=== PATIENT | male | born 1965 | race Hispanic/Latino ===

== ENCOUNTER 2018-11-13 10:33 | Day surgery (SDC) | payer BC, OTHER ==
[2018-11-13] MEDS ORDERED: ZOFRAN IV PRN (11:17)
--- NOTE | 2018-11-13 11:18 | Anesthesia Day of Surgery ---
Anesthesia Day of Surgery - Day of Surgery Patient Examined: Yes Patient H&P Reviewed: Yes Patient is NPO: Yes
[2018-11-13] MEDS ORDERED: MORPHINE IV ONE (11:22)
--- NOTE | 2018-11-13 11:22 | Anesthesia Consultation ---
Anesthesia Consult and Med Hx Date of service: 11/13/18 - Airway Anesthetic Teeth Evaluation: Good, Crowns ROM Head & Neck: Adequate (S/P ACDF) Mental/Hyoid Distance: Adequate Mallampati Class: Class II Intubation Access Assessment: Good - Pre-Operative Health Status ASA Pre-Surgery Classification: ASA2 Proposed Anesthetic Plan: General - Pulmonary Hx Smoking: No Hx Sleep Apnea: No (SHAE PRE SCREEN HIGH RISK) - Cardiovascular System Hx Hypertension: No - Central Nervous System Hx Psychiatric Problems: Yes (DR. PATEL(PCP), depression) - Endocrine Hx Renal Disease: Yes (kidney stones) - Other Systems Hx Alcohol Use: No (RARELY) Hx Substance Use: No Hx Cancer: No
[2018-11-13] MEDS ORDERED: VERSED IV NR (12:00)
[2018-11-13] MEDS ORDERED: LACTATED RINGERS 1,000 ML IV SCH (12:00)
[2018-11-13] MEDS ORDERED: DILAUDID ONE (13:59)
[2018-11-13] MEDS ORDERED: DIPRIVAN 10 MG/ML IV ONE (14:00)
[2018-11-13] MEDS ORDERED: XYLOCAINE MPF 2% ONE (14:01)
[2018-11-13] MEDS ORDERED: ZOFRAN ONE (14:44)
--- NOTE | 2018-11-13 15:01 | Short Stay Summary ---
Short Stay Documentation Date of service: 11/13/18 - History H&P: obtained from office - Allergies and Medications Current Medications: Allergies No Known Allergies Allergy (Verified 06/19/17 14:06) Home Medications Medication Instructions Recorded Confirmed Last Taken Type Cannabidiol (Cbd) Extract 100 mg PO DAILY 11/12/18 11/12/18 Unknown History [Epidiolex] traMADol [Ultram] 50 mg PO Q4HR PRN 11/12/18 11/12/18 Unknown History Active Medications Fentanyl (Sublimaze) 50 mcg IV Q5MIN PRN PRN Reason: Pain , Severe (7-10) Stop: 11/13/18 23:59 Lactated Ringer's (Lactated Ringers) 1,000 mls @ 125 mls/hr IV DIRECT ROSA Midazolam HCl (Versed) 2 mg IV PREOP NR Stop: 11/13/18 23:59 Ondansetron HCl (Zofran) 4 mg IV ONCE PRN PRN Reason: Nausea And Vomiting Stop: 11/13/18 23:59 - Brief post op/procedure progress note Date of procedure: 11/13/18 Pre-op diagnosis: balat renal stone 6mm Post-op diagnosis: same Procedure: left eswl Anesthesia: GETA Surgeon: JOSE RASCON Estimated blood loss: none Condition: stable - Hospital course Hospital course: percocet,maryer, post op info on chart - Disposition Condition at discharge: Stable Disposition: DC-01 TO HOME OR SELFCARE Short Stay Discharge Plan Follow up with: CARYN PATEL MD [Primary Care Provider] - 7 Days
[2018-11-13] MEDS: SUBLIMAZE IV PRN ×2 (15:12→15:25)
--- NOTE | 2018-11-13 15:17 | Operative Report ---
PREOPERATIVE DIAGNOSIS: Bilateral renal stones. POSTOPERATIVE DIAGNOSIS: Bilateral renal stones. PROCEDURE: Left extracorporal shock wave lithotripsy (staged) SURGEON: Hermelindo Falk MD ANESTHESIA: General. ESTIMATED BLOOD LOSS: Minimal. FLUIDS: Crystalloid. COMPLICATIONS: No complications. INDICATIONS: This patient is a 53-year-old gentleman seen by Dr. Ellsworth in the office, found to have bilateral stones. He has been noncompliant over the last several years. He states he has had lithotripsies in the past. Dr. Ellsworth was on vacation. He called emergently and I saw him in the office explained to him that due to the size of the stones, it is unlikely he is going to pass them and I would recommend lithotripsy. He discussed with his . He agrees to proceed with surgical intervention. DESCRIPTION OF PROCEDURE: The patient was taken to the operative suite, placed in a supine position. After adequate general anesthesia, his left 6 mm stone was localized with 2 planes using fluoroscopy. Extracorporal shock wave lithotripsy was administered with maximum kV of 7 and 2500 shocks. A 5-minute renal pause after 200 shocks. Adequate fragmentation could be appreciated. He tolerated the procedure well. He was extubated and taken to recovery room. He will go home on Percocet, a strainer and follow up in the office. JOB# [id number] KAREN/WILFRED SANDOVAL
[2018-11-13] MEDS ORDERED: PERCOCET 5/325 PO ONE (15:41)
[2018-11-13 16:31] VITALS: BP 132/74
--- NOTE | 2018-11-13 17:23 | Post Anesthesia Evaluation ---
- Post Anesthesia Evaluation Patient Participated: Yes Airway Patent: Yes Stable Respiratory Function: Yes Nausea/Vomiting: No Temp > 96.8F: Yes Pain Manageable: Yes Adequeate Hydration: Yes Anesthesia Complications: No
== END 2018-11-13 10:34 | disposition home or self-care (01) ==
LOC: OR 10:33
PROVIDERS: ATTEND Urology
DX: N20.0 Calculus of kidney (principal); G43.909 Migraine, unspecified, not intractable, without status migrainosus; F32.9 Major depressive disorder, single episode, unspecified; F41.9 Anxiety disorder, unspecified; Z98.890 Other specified postprocedural states; Z79.899 Other long term (current) drug therapy
CPT/HCPCS: 50590; J1170; J2250; J2405; J2704; J3010; J7120

== ENCOUNTER 2018-11-27 08:52 | Day surgery (SDC) | payer BC ==
[~2018-11-27 08:52] MED LIST: ANCEF/STERILE WATER 2 GM/20 ML 2 GM/20 ML SYRINGE IV NR; LACTATED RINGERS 1,000 ML IV SCH; VERSED IV SCH
[2018-11-27] MEDS ORDERED: SUBLIMAZE IV SCH (09:31)
[2018-11-27] MEDS ORDERED: DIPRIVAN 10 MG/ML IV ONE (09:36)
[2018-11-27] MEDS ORDERED: ZOFRAN IV PRN (09:40)
--- NOTE | 2018-11-27 09:40 | Anesthesia Consultation ---
Anesthesia Consult and Med Hx Date of service: 11/27/18 - Airway Anesthetic Teeth Evaluation: Good ROM Head & Neck: Adequate Mental/Hyoid Distance: Adequate Mallampati Class: Class II Intubation Access Assessment: Good - Pulmonary Exam CTA: Yes - Cardiac Exam Cardiac Exam: RRR - Pre-Operative Health Status ASA Pre-Surgery Classification: ASA2 (migraines, anxiety ) Proposed Anesthetic Plan: General - Central Nervous System Hx Psychiatric Problems: Yes - Other Systems Hx Alcohol Use: Yes (RARELY) Hx Cancer: No
--- NOTE | 2018-11-27 09:40 | Anesthesia Day of Surgery ---
Anesthesia Day of Surgery - Day of Surgery Patient Examined: Yes Patient H&P Reviewed: Yes Patient is NPO: Yes
[2018-11-27] MEDS ORDERED: WATER FOR IRRIG STERILE IR ONE (10:06)
[2018-11-27] MEDS ORDERED: DECADRON ONE (11:00)
[2018-11-27] MEDS ORDERED: ZOFRAN ONE (11:00)
[2018-11-27] MEDS ORDERED: XYLOCAINE MPF 2% ONE (11:00)
--- NOTE | 2018-11-27 11:25 | Post Operative Note ---
Date of procedure: 11/27/18 Pre-op diagnosis: stones ... Post-op diagnosis: same Findings: large distal stone Procedure: large distal stone renal stones Anesthesia: GETA Surgeon: KAMERON RUST Estimated blood loss: none Pathology: none Condition: stable Disposition: PACU
--- NOTE | 2018-11-27 11:26 | Discharge Summary ---
Short Stay Discharge Plan Activity: other (no straining ) Weight Bearing Status: Full Weight Bearing Diet: low fat, low cholesterol, low salt Special Instructions: other (inc fluids ) Follow up with: CARYN PATEL MD [Primary Care Provider] - 7 Days KAMERON RUST MD [Staff Physician] - 7 Days
[2018-11-27] MEDS: DILAUDID IV PRN ×2 (11:28→12:21)
--- NOTE | 2018-11-27 11:38 | Operative Report ---
PREOPERATIVE DIAGNOSES: Severe right flank pain, renal stones, possible ureteral stones, hydronephrosis. POSTOPERATIVE DIAGNOSES: Severe right flank pain, renal stones, possible ureteral stones, hydronephrosis with an 8 mm distal ureteral stone at the ureterovesical junction. PROCEDURE: Cystoscopy, right retrograde, right ureteroscopy, balloon dilatation, lasered the stone with stone extraction. SURGEON: Cruz Ellington MD ANESTHESIA: General. FINDINGS: This is a gentleman who initially had renal stones. He has an obstructing stone with severe pain. He now presents for treatment. DESCRIPTION OF PROCEDURE: The patient was brought to lithotripsy and placed on the table. There were some stones in the kidney, nothing really large. We followed this down. We saw what looked to be a large stone at the UVJ. He was then placed in lithotomy position. Retrograde showed the stone to be obstructing at the UVJ with hydroureteronephrosis. We therefore did not do a lithotripsy. We placed a wire and ureteroscopic balloon dilatation was carried out. A large stone was seen and this had to be lasered because it was too big to extract. It was lasered into three pieces and they were all extracted. The patient tolerated the procedure well. Family notified placed a double-J stent, let the kidney decompress. We did not do lithotripsy at this point. He may need followup lithotripsy, but at this point we had to relieve this obstruction. The patient tolerated the procedure well. Family notified, brought to recovery in stable condition. JOB# [id number] LEONARDO/WILFRED
[2018-11-27 12:11] VITALS: BP 126/83
--- NOTE | 2018-11-27 13:42 | Post Anesthesia Evaluation ---
- Post Anesthesia Evaluation Patient Participated: Yes Airway Patent: Yes Stable Respiratory Function: Yes Nausea/Vomiting: No Temp > 96.8F: Yes Pain Manageable: Yes Adequeate Hydration: Yes Anesthesia Complications: No Block Receding Appropriately: Not Applicable Patient on Ventilator: No
== END 2018-11-27 08:53 | disposition home or self-care (01) ==
LOC: OR 08:52
PROVIDERS: ATTEND Urology
DX: N13.2 Hydronephrosis with renal and ureteral calculous obstruction (principal); G43.909 Migraine, unspecified, not intractable, without status migrainosus; F32.9 Major depressive disorder, single episode, unspecified; F41.9 Anxiety disorder, unspecified; Z72.89 Other problems related to lifestyle; Z98.890 Other specified postprocedural states; Z79.899 Other long term (current) drug therapy
CPT/HCPCS: 52353; A4217; C1726; C1758; C1769; C2617; J0690; J1100; J1170; J2250; J2405; J2704; J3010; J7120; Q9967

== ENCOUNTER 2019-03-05 06:48 | Day surgery (SDC) | payer BC ==
[2019-03-05] MEDS ORDERED: LACTATED RINGERS 1,000 ML IV SCH (07:00)
[2019-03-05] MEDS ORDERED: BACTERIOSTATIC SODIUM CHLORIDE 0.9% 30 ML VIAL INFILTRATI ONE (07:17)
[2019-03-05] MEDS ORDERED: ceFAZolin/STERILE WATER 2 GM/20 ML SYRINGE IV NR (08:00)
--- NOTE | 2019-03-05 08:15 | Anesthesia Consultation ---
Anesthesia Consult and Med Hx Date of service: 03/05/19 - Airway Anesthetic Teeth Evaluation: Good ROM Head & Neck: Adequate Mental/Hyoid Distance: Adequate Mallampati Class: Class II Intubation Access Assessment: Good - Pulmonary Exam CTA: Yes - Cardiac Exam Cardiac Exam: RRR - Pre-Operative Health Status ASA Pre-Surgery Classification: ASA2 Proposed Anesthetic Plan: General (migraines, elevated BMI for GA) - Pulmonary Hx Smoking: No Hx Sleep Apnea: No (SHAE PRE SCREEN HIGH RISK) - Cardiovascular System Hx Hypertension: No Hx Heart Attack/AMI: No - Central Nervous System Hx Psychiatric Problems: No - Hematic Hx Anemia: No - Other Systems Hx Alcohol Use: Yes (RARE- WINE) Hx Substance Use: No Hx Cancer: No
--- NOTE | 2019-03-05 08:15 | Anesthesia Day of Surgery ---
Anesthesia Day of Surgery - Day of Surgery Patient Examined: Yes Patient H&P Reviewed: Yes Patient is NPO: Yes
[2019-03-05] MEDS ORDERED: ONDANSETRON 4 MG/2 ML INJ IV PRN (08:16)
[2019-03-05] MEDS ORDERED: HYDROmorphone 1 MG/1 ML INJ IV PRN (08:16)
[2019-03-05] MEDS ORDERED: LIDOCAINE MPF (2%) 20 MG/1 ML VIAL 5 ML ONE (08:21)
[2019-03-05] MEDS ORDERED: dexAMETHasone 20 MG/5 ML VIAL ONE (08:21)
[2019-03-05] MEDS ORDERED: SUCCINYLCHOLINE CHLORIDE 200 MG/10 ML INJ MDV ONE (08:22)
[2019-03-05] MEDS ORDERED: fentaNYL 100 MCG/2 ML INJ ONE (08:22)
[2019-03-05] MEDS ORDERED: PHENYLEPHRINE/NS 1,000 MCG/10 ML SYRINGE (OR USE) IV ONE (08:22)
[2019-03-05] MEDS ORDERED: PROPOFOL 200 MG/20 ML VIAL IV ONE (08:22)
[2019-03-05] MEDS ORDERED: GLYCOPYRROLATE 0.4 MG/2 ML INJ ONE (08:22)
[2019-03-05] MEDS ORDERED: MIDAZOLAM 2 MG/2 ML INJ IV NR (09:00)
--- NOTE | 2019-03-05 09:35 | Short Stay Summary ---
Short Stay Documentation Date of service: 03/05/19 - History H&P: obtained from office - Allergies and Medications Current Medications: Allergies No Known Allergies Allergy (Verified 11/25/18 18:19) Home Medications Medication Instructions Recorded Confirmed Last Taken Type Cannabidiol (Cbd) Extract 100 mg PO DAILY 11/12/18 03/03/19 03/05/19 06:00 History [Epidiolex] Oxycodone HCl/Acetaminophen 1 each PO Q6HR PRN 11/25/18 03/05/19 02/02/19 History [Percocet 10/325 mg] Centrum Men's Tablet 1 tab PO DAILY 02/26/19 02/26/19 03/05/19 06:00 History Hydrochlorothiazide 12.5 mg PO DAILY 02/26/19 02/26/19 03/05/19 06:00 History Sod/Pot/K Cit/Sod Cit/Cit Acid 1,620 mg PO QDAY 03/05/19 03/05/19 03/05/19 06:00 History [Potass Cit-Sod Cit-Citric Soln] Active Medications Cefazolin Sodium (Ancef/Sterile Water 2 Gm/20 Ml) 2 gm IV PREOP NR Stop: 03/05/19 13:00 Hydromorphone HCl (Dilaudid) 0.5 mg IV Q10MIN PRN PRN Reason: Pain , Severe (7-10) Stop: 03/05/19 22:00 Lactated Ringer's (Lactated Ringers) 1,000 mls @ 100 mls/hr IV DIRECT ROSA Last Admin: 03/05/19 07:17 Dose: 100 mls/hr Documented by: Midazolam HCl (Versed) 2 mg IV PREOP NR Stop: 03/05/19 23:59 Last Admin: 03/05/19 08:21 Dose: 2 mg Documented by: Ondansetron HCl (Zofran) 4 mg IV ONCE PRN PRN Reason: Nausea And Vomiting Stop: 03/05/19 14:00 - Brief post op/procedure progress note Date of procedure: 03/05/19 Pre-op diagnosis: left renal stone Post-op diagnosis: same Procedure: left ESWL Anesthesia: GETA Surgeon: JOSE RASCON Condition: stable - Hospital course Hospital course: ultram, percocet, post op info on chart - Disposition Condition at discharge: Stable Disposition: DC-01 TO HOME OR SELFCARE Short Stay Discharge Plan Follow up with: CARYN PATEL MD [Primary Care Provider] - 7 Days
[2019-03-05] MEDS ORDERED: MEPERIDINE 25 MG/1 ML INJ IV PRN (09:54)
[2019-03-05] MEDS ORDERED: oxyCODONE /ACETAMINOPHEN 5-325MG TAB PO PRN (09:54)
--- NOTE | 2019-03-05 09:58 | Operative Report ---
PREOPERATIVE DIAGNOSIS: Left renal stone. POSTOPERATIVE DIAGNOSES: Left renal stone. PROCEDURE: Left extracorporal shock wave lithotripsy, staged procedure. SURGEON: Hermelindo Falk MD ANESTHESIA: General. ESTIMATED BLOOD LOSS: Minimal. FLUIDS: Crystalloid. COMPLICATIONS: No complications. INDICATIONS: This patient is a 53-year-old gentleman with a long history of kidney stones. I did his lithotripsy several months ago. He has bilateral stones and understands this may require multiple procedures. He has a 9 mm left renal stone. He is now on Urocit-K due to his 24-hour urine evaluation. Risks, benefits, and complications were explained to the patient and his . They agreed to proceed with surgical intervention. DESCRIPTION OF PROCEDURE: The patient was taken to the operative suite, placed in a supine position. After adequate general anesthesia, his left renal stone was localized in 2 planes using fluoroscopy. Extracorporal shock wave lithotripsy was administered in maximum kV of 8 and 2500 shocks, 5-minute renal pause after 200 shocks was performed. Adequate fragmentation could be appreciated. He tolerated the procedure well and was extubated and taken to recovery room. He will go home on Percocet and Ultram and follow up in the office. JOB# [id number] KAREN/WILFRED
[2019-03-05 11:00] VITALS: BP 128/83
== END 2019-03-05 06:49 | disposition home or self-care (01) ==
LOC: OR 06:48
PROVIDERS: ATTEND Urology
DX: N20.0 Calculus of kidney (principal); G43.909 Migraine, unspecified, not intractable, without status migrainosus; K21.9 Gastro-esophageal reflux disease without esophagitis; F32.9 Major depressive disorder, single episode, unspecified; F41.9 Anxiety disorder, unspecified; Z72.89 Other problems related to lifestyle; Z79.899 Other long term (current) drug therapy; Z98.890 Other specified postprocedural states
CPT/HCPCS: 36415; 50590; 84132; J0330; J0690; J1100; J2175; J2250; J2370; J2405; J2704; J3010; J7120

== ENCOUNTER 2020-11-10 05:55 | Day surgery (SDC) | payer BC, OTHER ==
[2020-11-10] MEDS ORDERED: LACTATED RINGERS 1,000 ML ONE (06:20)
[2020-11-10] MEDS ORDERED: BACTERIOSTATIC SODIUM CHLORIDE 0.9% 30 ML VIAL INFILTRATI ONE (06:21)
[2020-11-10] MEDS ORDERED: LACTATED RINGERS 1,000 ML IV SCH (06:45)
--- NOTE | 2020-11-10 06:50 | Anesthesia Consultation ---
Anesthesia Consult and Med Hx Date of service: 11/10/20 - Airway Anesthetic Teeth Evaluation: Good ROM Head & Neck: Adequate Mental/Hyoid Distance: Adequate Mallampati Class: Class II Intubation Access Assessment: Good - Pulmonary Exam CTA: Yes - Cardiac Exam Cardiac Exam: RRR - Pre-Operative Health Status ASA Pre-Surgery Classification: ASA2 Proposed Anesthetic Plan: General - Pulmonary Hx Smoking: No Hx Sleep Apnea: No (SHAE PRE SCREEN HIGH RISK) - Cardiovascular System Hx Hypertension: Yes Hx Heart Attack/AMI: No - Central Nervous System Hx Psychiatric Problems: No - Hematic Hx Anemia: No - Other Systems Hx Substance Use: No Hx Cancer: No
--- NOTE | 2020-11-10 06:50 | Anesthesia Day of Surgery ---
Anesthesia Day of Surgery - Day of Surgery Patient Examined: Yes Patient H&P Reviewed: Yes Patient is NPO: Yes
[2020-11-10] MEDS ORDERED: HYDROmorphone 1 MG/1 ML INJ IV NR (06:51)
[2020-11-10] MEDS ORDERED: MIDAZOLAM 2 MG/2 ML INJ IV NR (07:00)
[2020-11-10] MEDS ORDERED: ONDANSETRON 4 MG/2 ML INJ ONE ×2 (07:03→07:06)
[2020-11-10] MEDS ORDERED: ONDANSETRON 4 MG/2 ML INJ IV NR (07:05)
[2020-11-10] MEDS ORDERED: propofoL 200 MG/20 ML VIAL IV ONE (07:06)
[2020-11-10] MEDS ORDERED: dexAMETHasone 20 MG/5 ML VIAL ONE (07:06)
[2020-11-10] MEDS ORDERED: LIDOCAINE MPF (2%) 20 MG/1 ML VIAL 5 ML ONE (07:06)
[2020-11-10] MEDS ORDERED: fentaNYL 100 MCG/2 ML INJ ONE (07:06)
[2020-11-10] MEDS ORDERED: ePHEDrine SULFATE 50 MG/1 ML INJ ONE (07:14)
[2020-11-10] MEDS ORDERED: ONDANSETRON 4 MG/2 ML INJ IV PRN (07:16)
[2020-11-10] MEDS ORDERED: HYDROmorphone 1 MG/1 ML INJ IV PRN ×2 (07:16)
[2020-11-10] MEDS ORDERED: ceFAZolin/STERILE WATER 2 GM/20 ML SYRINGE IV NR (07:37)
[2020-11-10] MEDS ORDERED: ceFAZolin/Water 2 GM/20 ML 2 GM/20 ML SYRINGE IV ONE (07:40)
[2020-11-10] MEDS ORDERED: PHENYLEPHRINE/NS 1,000 MCG/10 ML SYRINGE (OR USE) IV ONE (08:42)
--- NOTE | 2020-11-10 08:51 | Post Operative Note ---
Date of procedure: 11/10/20 Pre-op diagnosis: `bilat stones Post-op diagnosis: same Procedure: r eswl Anesthesia: GETA Surgeon: KAMERON RUST Estimated blood loss: none Pathology: none Condition: stable Disposition: PACU
--- NOTE | 2020-11-10 09:03 | Operative Report ---
DATE OF SURGERY: 11/10/2020 PREOPERATIVE DIAGNOSES: Bilateral renal and previous ureteral stone. POSTOPERATIVE DIAGNOSES: Bilateral renal and previous ureteral stone. PROCEDURE PERFORMED: Right in situ lithotripsy. SURGEON: Cruz Ellington M.D. ANESTHESIA: General. FINDINGS: This is a gentleman with a large stone burden bilaterally. He has had multiple stones and passed multiple stones. No hydronephrosis. He now presents for treatment. DESCRIPTION OF PROCEDURE: The patient was brought to lithotripsy and placed on the table. Stones were easily localized. There were clusters of stones almost in a crescent shape. Shocks were begun at 1 kV, increased to a maximum of 7 kV. We mostly stayed at 80 shocks per minute. The patient tolerated the procedure well. There was clearly some change in the density on the visualization and opacity of the stones. PLAN: We will follow up in one to two weeks. Call if there is any pain. Tolerated the procedure well and brought to recovery in stable condition. TID: [id number] RECEIPT: [id number] LEONARDO/JASIEL
[2020-11-10 10:30] VITALS: BP 123/84
[2020-11-10] MEDS ORDERED: HYDROcodone/ACETAMINOPHEN 5-325 MG TAB PO PRN (11:30)
== END 2020-11-10 05:56 | disposition home or self-care (01) ==
LOC: OR 05:55
PROVIDERS: ATTEND Urology
DX: N20.2 Calculus of kidney with calculus of ureter (principal); Z79.899 Other long term (current) drug therapy; G43.909 Migraine, unspecified, not intractable, without status migrainosus; K21.9 Gastro-esophageal reflux disease without esophagitis; F32.9 Major depressive disorder, single episode, unspecified; F41.9 Anxiety disorder, unspecified; Z98.890 Other specified postprocedural states
CPT/HCPCS: 36415; 50590; 84132; J0690; J1100; J1170; J2250; J2370; J2405; J2704; J3010; J7120